=== PATIENT | female | born 2000 | race Two or more races ===

== ENCOUNTER 2023-04-18 14:00 | Inpatient (IN) | payer OTHER ==
[~2023-04-18] VITALS: Ht 157.5 cm; Wt 54.9 kg
[2023-04-20] MEDS ORDERED: PRENATAL TABLE1 EAC1 PO (22:18)
[2023-04-20 23:14] LABS: HEMOGLOBIN 10.9 g/dL (12.0-15.00); MEAN CELL VOLUME 81.1 fL (80.00-100.00); MEAN CORPUSCULAR HEMOGLOBIN 26.7 pg (27.00-32.0); PLATELET COUNT 256 K/uL (150-450); RED BLOOD COUNT 4.07 M/uL (4.00-6.00); RED CELL DISTRIBUTION WIDTH 14.5 % (11.5-14.5)
[2023-04-20 23:37] LABS: INR < 0.93; PARTIAL THROMBOPLASTIN TIME 25.8 SECONDS (22.0-34.0); PROTHROMBIN TIME 9.8 SECONDS (9.0-11.5)
[2023-04-20 23:46] LABS: ALBUMIN 2.7 gm/dL (3.4-5.0); BILIRUBIN TOTAL 0.32 mg/dL (0.3-1.2); CALCIUM 8.7 mg/dL (8.5-10.1); CREATININE SERUM 0.52 mg/dL (0.55-1.02); GFR 147.46; GLOBULINA 3.8 G/DL (2.4-3.5); POTASSIUM 3.77 mEq/L (3.5-5.1); TOTAL PROTEIN 6.5 gm/dL (6.4-8.2)
== END 2023-04-22 14:27 | disposition home or self-care (01) | DRG 807 ==
LOC: LDR 04-20 22:10 → OB/GYN 04-20 22:10 → LDR 04-24 14:00
PROVIDERS: Obstetrics & Gynecology; ADMIT Obstetrics & Gynecology Maternal & Fetal Medicine; ATTEND Obstetrics & Gynecology Maternal & Fetal Medicine
PROC: 10E0XZZ Delivery of Products of Conception, External Approach (ICD-10-PCS; principal; 2023-04-20)
PROC: 0UQG7ZZ Repair Vagina, Via Natural or Artificial Opening (ICD-10-PCS; 2023-04-20)
PROC: 4A1HXCZ Monitoring of Products of Conception, Cardiac Rate, External Approach (ICD-10-PCS; 2023-04-20)
DX: O71.4 Obstetric high vaginal laceration alone (principal); Z37.0 Single live birth; Z3A.39 39 weeks gestation of pregnancy; Z20.822 Contact with and (suspected) exposure to COVID-19

== ENCOUNTER 2024-11-23 11:42 | Outpatient (CLI) | payer OTHER ==
[~2024-11-23 11:42] MED LIST: PRENATAL TABLE1 EAC1 PO
== END 2024-11-23 13:06 | disposition home or self-care (01) ==
LOC: NST 11:42
PROVIDERS: ATTEND Obstetrics & Gynecology
DX: Z34.83 Encounter for supervision of other normal pregnancy, third trimester (principal)

== ENCOUNTER 2024-11-24 00:36 | Inpatient (IN) | payer OTHER ==
[~2024-11-24] VITALS: Ht 154.9 cm; Wt 55.8 kg
[2024-11-24] VITALS (8 sets, daily range): BP systolic 99–121; BP diastolic 63–87
[2024-11-24] MEDS ORDERED: AMPICILLIN SODIUM 2,000 MG VIAL ONE (00:41)
[2024-11-24] MEDS ORDERED: RINGERS SOLUTION,LACTATED 1,000 ML IV SCH (00:45)
[2024-11-24] MEDS ORDERED: AMPICILLIN SODIUM 2,000 MG VIAL IV ONE (00:45)
[2024-11-24] MEDS ORDERED: OXYTOCIN 20 UNITS/1000ML RL PIGGYBAG IV ONE (01:29)
[2024-11-24] MEDS ORDERED: CHLORHEXIDINE GLUCONATE 120 ML BOTTLE TOP ONE (01:29)
[2024-11-24] MEDS ORDERED: LIDOCAINE HCL 1% 10ML VIAL ONE (01:29)
[2024-11-24] MEDS ORDERED: ERYTHROMYCIN BASE OPHT 1GM EACH TUBE OP ONE ×2 (01:29→03:45)
[2024-11-24 02:23] LABS: INR < 0.93; PARTIAL THROMBOPLASTIN TIME 24.2 SECONDS (22.0-34.0)
[2024-11-24 02:27] LABS: ALBUMIN 2.5 gm/dL (3.4-5.0); BILIRUBIN TOTAL 0.47 mg/dL (0.3-1.2); CALCIUM 8.6 mg/dL (8.5-10.1); CREATININE SERUM 0.45 mg/dL (0.55-1.02); GFR 172.66; GLOBULINA 3.5 G/DL (2.4-3.5); POTASSIUM 3.86 mEq/L (3.5-5.1)
[2024-11-24 02:28] LABS: BASO % 0.4 % (0.1-1.2); EOS # 0.02 (0.04-0.54); EOS % 0.3 % (0.7-7.0); HEMATOCRIT 30.5 % (34.1-44.9); HEMOGLOBIN 9.5 g/dL (11.2-15.7); LYMPH # 2.13 (1.18-3.74); LYMPH % 27.2 % (19.3-53.1); MEAN CORPUSCULAR HEMOGLOBIN 23.2 pg (25.6-32.2); MONO # 0.82 (0.24-0.82); MONO % 10.5 % (4.7-12.5); NEUT % 61.3 % (34.0-71.1); PLATELET COUNT 235 K/uL (163-369); RED BLOOD COUNT 4.09 M/uL (3.93-5.22); RED CELL DISTRIBUTION WIDTH 14.8 % (11.6-14.4)
[2024-11-24] MEDS ORDERED: CHLORHEXIDINE GLUCONATE 120 ML BOTTLE TOP SCH (03:15)
[2024-11-24] MEDS ORDERED: IBUprofen 400 MG TABLET PO PRN (03:15)
[2024-11-24] MEDS ORDERED: OXYTOCIN 1,000 ML IV SCH (03:15)
[2024-11-24] MEDS ORDERED: AMPICILLIN SODIUM 1,000 MG VIAL IV SCH (05:00)
[2024-11-24 19:34] LABS: BASO % 0.2 % (0.1-1.2); EOS # 0.01 (0.04-0.54); EOS % 0.1 % (0.7-7.0); HEMATOCRIT 30.9 % (34.1-44.9); HEMOGLOBIN 9.6 g/dL (11.2-15.7); LYMPH % 14.6 % (19.3-53.1); MEAN CORPUSCULAR HEMOGLOBIN 23.4 pg (25.6-32.2); MONO # 1.03 (0.24-0.82); NEUT # 7.71 (1.56-6.13); NEUT % 74.8 % (34.0-71.1); PLATELET COUNT 210 K/uL (163-369); RED BLOOD COUNT 4.11 M/uL (3.93-5.22); RED CELL DISTRIBUTION WIDTH 14.8 % (11.6-14.4)
[2024-11-25] VITALS: BP 99/63
[2024-11-25 08:00] VITALS: BP 96/62
[2024-11-25] MEDS ORDERED: IRON FUM,PS/FOLIC/BCOMP,C NO.9 1 CAP CAPSULE PO SCH (09:23)
[2024-11-25 16:00] VITALS: BP 111/80
[2024-11-25 20:26] VITALS: BP 118/81
[2024-11-26 00:17] VITALS: BP 105/84
[2024-11-26 05:43] VITALS: BP 111/67
[2024-11-26 08:40] VITALS: BP 115/75
== END 2024-11-26 11:48 | disposition home or self-care (01) | DRG 807 ==
LOC: OB/GYN 00:36 → LDR 00:36 → OB/GYN 03:49 → LDR 11-25 10:30 → OB/GYN 11-26 11:48
PROVIDERS: Obstetrics & Gynecology; ADMIT Obstetrics & Gynecology Maternal & Fetal Medicine; ATTEND Obstetrics & Gynecology Maternal & Fetal Medicine
PROC: 10E0XZZ Delivery of Products of Conception, External Approach (ICD-10-PCS; principal; 2024-11-24)
PROC: 0HQ9XZZ Repair Perineum Skin, External Approach (ICD-10-PCS; 2024-11-24)
PROC: 4A1HXCZ Monitoring of Products of Conception, Cardiac Rate, External Approach (ICD-10-PCS; 2024-11-24)
DX: O70.0 First degree perineal laceration during delivery (principal); Z37.0 Single live birth; O99.824 Streptococcus B carrier state complicating childbirth; Z3A.39 39 weeks gestation of pregnancy